=== PATIENT | male | born 1985 | race Caucasian/White ===

== ENCOUNTER 2019-01-15 20:23 | Emergency (ER) | payer MEDICAID ==
[~2019-01-15] VITALS: Wt 92.5 kg
[~2019-01-15 20:23] MED LIST: CYCL10TA7 PO; HYDR-4011 PO; IBUP-1542 PO; NAPR-985 PO; OFLO5DRO46 RIGHT EYE
[2019-01-15 22:37] VITALS: BP 118/77; PULSE 56; RESP 20
--- NOTE | 2019-01-16 04:30 | ERD ---
ER Documentation Chief Complaint Chief Complaint pain left mid back x 1 week, denies trauma HPI 33-year-old male presents emergency department complaining of intermittent left- sided mid back pain for the past 1 week. 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 His pain is 8/10 in severity, constant, alleviated with Tylenol. He denies any loss of bowel or bladder function, saddle anesthesia, weakness to the lower extremities, or other symptoms at this time. ROS All systems reviewed and are negative except as per history of present illness. Medications Home Meds Active Scripts Cyclobenzaprine Hcl* (Cyclobenzaprine Hcl*) 10 Mg Tablet, 10 MG PO TID, #15 TAB Prov:JESSE MOHAN PA-C 01/15/19 Naproxen* (Naprosyn*) 500 Mg Tablet, 500 MG PO BID PRN for PAIN AND/OR INFLAMMATION, #30 TAB Prov:JESSE MOHAN PA-C 01/15/19 Ofloxacin* (Ocuflox*) 0.3%-5 Ml Ophth Drops, 1 DROP RIGHT EYE TID, #1 BOTTLE Prov:TAMMY CANO PA-C 02/13/17 Hydrocodone/Acetaminophen ([place] 5-325 Tablet) 1 Each Tablet, 1 TAB PO Q6H PRN for PAIN, #7 TAB Prov:TAMMY CANO PA-C 02/13/17 Ibuprofen* (Motrin*) 600 Mg Tab, 600 MG PO Q6, #30 TAB Prov:TAMMY CANO PA-C 02/13/17 Allergies Allergies: Coded Allergies: No Known Allergy (Unverified , 02/13/17) PMhx/Soc History of Surgery: No Anesthesia Reaction: No Hx Neurological Disorder: No Hx Respiratory Disorders: No Hx Cardiac Disorders: Yes (Unknown cardiac problem) Hx Psychiatric Problems: No Hx Miscellaneous Medical Probl: No Hx Alcohol Use: Yes Hx Substance Use: No Hx Tobacco Use: No Smoking Status: Light tobacco smoker FmHx Family History: No diabetes Physical Exam Vitals Vital Signs Date Temp Pulse Resp B/P (MAP) Pulse Ox O2 O2 Flow FiO2 Time Delivery Rate 01/15/19 97.9 56 20 118/77 98 Room Air 22:37 (91) 01/15/19 98.0 79 18 114/62 98 20:47 (79) Physical Exam Const: No acute distress Head: Atraumatic Eyes: Normal Conjunctiva ENT: Normal External Ears, Nose and Mouth. Neck: Full range of motion. No meningismus. Resp: Clear to auscultation bilaterally Cardio: Regular rate and rhythm, no murmurs Abd: Soft, non tender, non distended. Normal bowel sounds Skin: No petechiae or rashes Back Exam: Subjective tenderness palpation of the paraspinal muscles of the thoracic spine bilaterally. Skin: No bruising or rash Compartments: Soft Motor: Normal flexion and extension of bilateral hip/knee/ankle/foot Sensation: Intact to light touch throughout Bones: No midline TTP Ext: No cyanosis, or edema Neur: Awake and alert Psych: Normal Mood and Affect Procedures/MDM 33-year-old male presents to the emergency department with signs and symptoms most consistent with musculoskeletal back pain. Patient's musculoskeletal symptoms have stabilized while they have been evaluated in the department and are appropriate for outpatient work up. No evidence of cauda equina, cord compression, infiltrative, or infectious etiology. No evidence of life-threatening pathology at time of discharge. Pt/family in agreement with discharge plan/diagnosis. Pt/family advised to return immediately with any new or worsening symptoms. Follow-up with primary care physician within the next 1-2 days. Departure Diagnosis: Primary Impression: Back pain Condition: Fair Patient Instructions: Back Pain (Acute Or Chronic) [facility] Usted se rubalcava hecho un examen mdico de control que le indica que no est en yoni condicin que requiera tratamiento urgente en el Departamento de Emergencia. Un estudio ms profundo y el tratamiento de samano condicin pueden esperar sin ningn riesgo hasta que usted sea atendida/o en el consultorio de samano mdico o yoni clnica. Es responsabilidad suya arreglar yoni dorina para el seguimiento del zack. MANEJO DE CONDICIONES NO URGENTES EN EL FUTURO 1) Si usted tiene un mdico de atencin primaria: Usted debera llamar a samano mdico de atencin primaria antes de venir al departamento de emergencia. Despus de las horas de consultorio, samano doctor o samano asociado/a est disponible por telfono. El mdico o enfermero de helen en el servicio telefnico puede asesorarle por yessica medio para atender el problema, o zack contrario se puede programar yoni dorina. 2) Si usted no tiene un mdico de atencin primaria: Llame al mdico o clnica de referencia que aparece abajo bing las horas de consultorio para hacer yoni dorina para que le vean. CLINICAS: [place] [id number] [phone] [facility] [phone] [place] [id number] [phone] [facility]. [place] [id number] [phone] [facility] [place] [id number] [phone] [facility] [phone] [address] Additional Instructions: Llame al doctor MAANA y ingrid yoni DORINA PARA DENTRO DE 1-2 GAMBOA.Dgale a la secretaria que nosotros le instruimos hacer esta dorina.Avise o llame si samano condicin se empeora antes de la dorina. Regresa aqui si peor o no mejor. JESSE MOHAN PA-C Jan 16, 2019 04:30
== END 2019-01-15 22:38 | disposition home or self-care (01) ==
LOC: FTE 20:23
DX: M54.9 Dorsalgia, unspecified (principal); F17.210 Nicotine dependence, cigarettes, uncomplicated
CPT/HCPCS: 99283